=== PATIENT | female | born 1985 | race Caucasian/White ===

== ENCOUNTER 2016-07-09 10:12 | Emergency (ER) | payer OTHER ==
[2016-07-09 13:07] LABS: microscopic required? NO
[2016-07-09 13:08] LABS: BASOPHIL % 0.6 % (0-2); RED CELL DISTRIBUTION WIDTH 13.3 % (11.5-14.5)
[2016-07-09 13:09] LABS: PLATELET COUNT 420 x10^3mcL (130-400)
[2016-07-09 13:15] LABS: urine erythrocyte NEGATIVE (NEGATIVE)
[2016-07-09 13:32] LABS: CALCIUM 8.4 mg/dL (8.5-10.1); CHLORIDE SERUM 105 mmol/L (98-107); CREATININE SERUM 0.8 mg/dL (0.6-1.0); GFR1 > 60 mL/min; GLUCOSE SERUM 84 mg/dL (74-106); POTASSIUM SERUM 3.6 mmol/L (3.5-5.1); SODIUM SERUM 140 mmol/L (136-145)
[2016-07-09 13:41] LABS: ALBUMIN 3.5 g/dL (3.4-5.0); ALKALINE PHOSPHATASE 105 U/L (46-116); ALT/SGPT 19 U/L (14-59); AMYLASE 52 U/L (25-115); AST/SGOT 16 U/L (15-37); BILIRUBIN TOTAL 0.3 mg/dL (0.20-1.00); LIPASE 97 IU/L (73-393); TOTAL PROTEIN, SERUM 7.1 g/dL (6.4-8.2)
[2016-07-09 16:35] VITALS: BP 107/64
== END 2016-07-09 16:35 | disposition home or self-care (01) ==
LOC: ED 10:12
PROVIDERS: Specialist
DX: N83.202 Unspecified ovarian cyst, left side (principal); N83.201 Unspecified ovarian cyst, right side; E66.9 Obesity, unspecified
CPT/HCPCS: 83880; J1885; J2405; J3010; J7030